=== PATIENT | female | born 1950 | race African-American/Black ===

== ENCOUNTER 2020-12-21 01:51 | Emergency (ER) | payer MEDICARE, OTHER ==
[~2020-12-21] VITALS: Ht 157.5 cm; Wt 99.1 kg
[2020-12-21] MEDS ORDERED: DOCU-270 PO (01:56)
[2020-12-21] MEDS ORDERED: LOSA-30 PO (01:56)
[2020-12-21] MEDS ORDERED: HYDR25TA84 PO (01:56)
[2020-12-21] MEDS ORDERED: DILT-72 PO (01:56)
[2020-12-21] MEDS ORDERED: ASPI-1444 PO (01:56)
[2020-12-21] MEDS ORDERED: METO50 PO (01:56)
[2020-12-21 03:38] VITALS: BP 142/70
== END 2020-12-21 03:49 | disposition home or self-care (01) ==
LOC: EMS 01:59
DX: I10 Essential (primary) hypertension (principal)
CPT/HCPCS: 93005; 99283; 99284

== ENCOUNTER 2021-02-10 09:30 | Emergency (ER) | payer OTHER ==
[~2021-02-10] VITALS: Ht 167.6 cm; Wt 98.2 kg
[~2021-02-10 09:30] MED LIST: ASPI-1444 PO; DILT-72 PO; DOCU-270 PO; HYDR25TA84 PO; LOSA-30 PO; METO50 PO
[2021-02-10] MEDS ORDERED: VIT1CAPS47 PO (09:41)
[2021-02-10] MEDS ORDERED: MAGN296S82 PO (09:41)
[2021-02-10 10:45] VITALS: BP 176/91
== END 2021-02-10 10:49 | disposition home or self-care (01) ==
LOC: EMS 09:30
DX: K59.00 Constipation, unspecified (principal); I10 Essential (primary) hypertension
CPT/HCPCS: 99281; Z7502

== ENCOUNTER 2022-04-20 01:41 | Emergency (ER) | payer OTHER ==
[~2022-04-20] VITALS: Ht 157.5 cm; Wt 100.0 kg
[~2022-04-20 01:41] MED LIST changes: -DOCU-270 PO; +DOCU-385 PO; +MAGN296S2 PO; +VIT1CAPS47 PO
[2022-04-20 02:45] VITALS: BP 137/67
== END 2022-04-20 02:51 | disposition home or self-care (01) ==
LOC: EMS 01:41
DX: I10 Essential (primary) hypertension (principal); K59.00 Constipation, unspecified
CPT/HCPCS: 99283; Z7502

== ENCOUNTER 2022-04-29 13:17 | Emergency (ER) | payer OTHER ==
[~2022-04-29] VITALS: Ht 157.5 cm; Wt 97.3 kg
[2022-04-29 14:39] LABS: BASOPHILS % (AUTO) 0.7 % (0.0-2.0); EOSINOPHILS % (AUTO) 1.1 % (1.0-6.0); HEMATOCRIT 41.2 % (36-46); LYMPHOCYTES # (AUTO) 1.3 K/uL (1.0-4.8); LYMPHOCYTES % (AUTO) 23.9 % (22.0-44.0); MEAN CORPUSCULAR HGB CONC 33.8 G/dL (31.0-37.0); MEAN CORPUSCULAR VOLUME 92 fL (80-100); MONOCYTES # (AUTO) 0.5 K/uL (0.1-1.0); MONOCYTES % (AUTO) 9.8 % (2.0-9.0); NEUTROPHILS # (AUTO) 3.5 K/uL (1.8-7.7); NEUTROPHILS % (AUTO) 64.5 % (40.0-70.0); PLATELET COUNT (AUTO) 238 K/uL (150-450)
[2022-04-29 14:51] LABS: ANION GAP 8 mmol/L (8-16); CALCIUM, TOTAL 9.9 mg/dL (8.8-10.5); CARBON DIOXIDE 31 mmol/L (22-29); CHLORIDE 99 mmol/L (98-107); CREATININE 0.89 mg/dL (0.60-1.30); GLUCOSE,RANDOM 133 mg/dL (70-110); POTASSIUM 3.1 mmol/L (3.5-5.1); SODIUM SERUM 138 mmol/L (136-145); UREA NITROGEN, BLOOD 10 mg/dL (7-18)
[2022-04-29 14:52] LABS: GLOMERULAR FILTR. RATE CALC > 60 mL/min (>60)
[2022-04-29 14:57] LABS: ALANINE AMINOTRANSFERASE 23 U/L (12-78); ALBUMIN 3.6 g/dL (3.4-5.0); ALKALINE PHOSPHATASE 77 U/L (46-116); ASPARTATE AMINOTRANSFERASE 19 U/L (15-37); BILIRUBIN,TOTAL 0.4 mg/dL (0.1-1.0); TOTAL PROTEIN, SERUM 8.3 g/dL (6.4-8.2)
[2022-04-29 15:08] LABS: B-TYPE NATRIURETIC PEPTIDE 27 pg/mL (0-100)
[2022-04-29 15:38] VITALS: BP 163/80
[2022-04-29] MEDS ORDERED: POTASSIUM CHLORIDE 20 MEQ ER TABLET PO ONE (16:00)
== END 2022-04-29 17:34 | disposition home or self-care (01) ==
LOC: EMS 14:10
DX: R00.2 Palpitations (principal); I10 Essential (primary) hypertension
CPT/HCPCS: 71045; 80053; 83880; 84484; 85025; 85610; 85730; 93005; 99285; 36415-L1; 36415-TC